=== PATIENT | male | born 1965 | race Caucasian/White ===

== ENCOUNTER 2022-05-20 14:31 | Emergency (ER) | payer OTHER ==
[~2022-05-20] VITALS: Ht 190.5 cm; Wt 163.3 kg
--- NOTE | 2022-05-20 15:08 | NUR ---
PATIENT CAN NOT RECALL THE EXACT NAMES & DOSAGES OF HIS HOME MEDICINES
[2022-05-20] MEDS ORDERED: SPIRONOLACTONE (15:16)
[2022-05-20] MEDS ORDERED: lasix (15:16)
--- NOTE | 2022-05-20 19:01 | NUR ---
Nursing SBAR given to 7pm pharmacy data analyst Albert, pending available ER [email or web address]
[2022-05-20 23:05] LABS: HEMATOCRIT 40.8 % (36.7-47.1); MEAN CORPUSCULAR HEMOGLOBIN 32.8 uug (23.8-33.4); MEAN CORPUSCULAR VOLUME 97.8 fL (73.0-96.2); PLATELET COUNT (AUTO) 78 K/uL (152-348)
[2022-05-20 23:18] LABS: CARBON DIOXIDE 26 mmol/L (21-32); CHLORIDE 106 mmol/L (98-107); CREATININE 0.7 mg/dL (0.6-1.3); GLUCOSE 111 mg/dL (74-106); POTASSIUM 3.7 mmol/L (3.5-5.1); UREA NITROGEN, BLOOD 8 mg/dL (7-18)
[2022-05-20 23:26] LABS: ALANINE AMINOTRANSFERASE 31 U/L (16-63); ALKALINE PHOSPHATASE 94 U/L (50-136); ASPARTATE AMINOTRANSFERASE 76 U/L (15-37); BILIRUBIN,DIRECT 0.9 mg/dL (0.0-0.2); BILIRUBIN,TOTAL 2.1 mg/dL (0.2-1.0); TOTAL PROTEIN, SERUM 7.6 g/dL (6.4-8.2)
[2022-05-21] MEDS ORDERED: ONDANSETRON ODT 4 MG TAB.RAPDIS ONE (02:35)
[2022-05-21] MEDS ORDERED: ONDANSETRON ODT 4 MG TAB.RAPDIS SL ONE (02:45)
--- NOTE | 2022-05-21 02:46 | NUR ---
Darrell, US tech at bedside for scan.
[2022-05-21 05:45] VITALS: BP 155/69
--- NOTE | 2022-05-21 05:45 | NUR ---
Patient discharged to home in stable condition. Written and verbal after care instructions given. Patient verbalizes understanding of instructions. Stressed follow up or return to ER for worsening s/s.
== END 2022-05-21 06:18 | disposition home or self-care (01) ==
LOC: ER 14:48
DX: R60.0 Localized edema (principal); Z59.02 Unsheltered homelessness; F17.210 Nicotine dependence, cigarettes, uncomplicated; K21.9 Gastro-esophageal reflux disease without esophagitis
CPT/HCPCS: 36415; 71045; 84484; 85025; 93005; A4663; Q0162